=== PATIENT | male | born 1955 | race Hispanic/Latino ===

== ENCOUNTER 2018-07-12 14:28 | Emergency (ER) | payer OTHER, SELFPAY ==
[~2018-07-12 14:28] MED LIST: Iopamidol 370 76% 125 ML VIAL FS ONE; Sodium Chloride 0.9% 100 ML BAG ONE
[2018-07-12 15:03] LABS: #Basophils 0.1 thou/uL (0.0-0.2); #Eosinphils 0.4 thou/uL (0.0-0.7); #Monocytes 0.5 thou/uL (0.11-0.59); #Neutrophils 4.6 thou/uL (1.40-6.50); %Basophils 0.8 % (0.0-1.0); %Eosinophils 4.7 % (0.0-10.0); %Lymphocytes 26.6 % (21.0-51.0); %Monocytes 6.7 % (0.0-10.0); %Neutrophils 61.2 % (42.0-75.0); Hemoglobin 13.8 g/dL (14.0-18.0); Mean Corpuscular HGB CONC 32.9 g/dL (32.0-36.0); Mean Corpuscular Hemoglobin 27.2 pg (27.0-31.0); Mean Corpuscular Volume 82.8 fL (78.0-98.0); Mean Platelet Volume 6.4 fL (7.4-10.4); Platelet Count 280 thou/uL (130-400); RBC Distribution Width 12.7 % (11.5-14.5); Red Blood Cell (RBC) Count 5.07 mill/uL (4.70-6.10); White Blood Cell (WBC) Count 7.5 thou/uL (4.8-10.8)
[2018-07-12 15:11] LABS: Anion Gap 15 mmol/L (10-20); BUN (Urea Nitrogen) 16 mg/dL (8.4-25.7); Calc. Creatinine Clearance 0 mL/min (70-130); Calcium 9.2 mg/dL (7.8-10.44); Carbon Dioxide 18 mmol/L (23-31); Chloride 110 mmol/L (98-107); Estimated GFR-MDRD 83; Glucose 130 mg/dL (80-115); Potassium 3.9 mmol/L (3.5-5.1); Sodium 139 mmol/L (136-145)
--- NOTE | 2018-07-12 15:11 | CT ---
BRAIN CT WITHOUT IV CONTRAST: HISTORY: Headache with affecting vision. No injury or trauma. FINDINGS: No focal mass or midline shift. No intra- or extraaxial hemorrhage. Sinus mucosal changes including the ethmoid sinuses as well as some opacification and sclerosis in both mastoid regions. IMPRESSION: No significant acute intracranial process. No mass or bleed. Sinus mucosal disease. POS: [facility]
[2018-07-12 15:13] LABS: INR-International Normal Ratio 0.9; Prothrombin Time 12.6 SEC (12.0-14.7)
[2018-07-12 15:14] LABS: PTT 31.5 SEC (22.9-36.1)
[2018-07-12] MEDS ORDERED: Metoclopramide HCl 10 MG/2 ML VIAL ONE (15:53)
--- NOTE | 2018-07-12 16:50 | CT ---
CTA of the head with IV contrast and 3-D reformatted imaging. CTA of the neck with IV contrast and 3-D reformatted imaging. INDICATION: Headache COMPARISON: CT the brain without contrast dated July 12, 2018 FINDINGS: CTA OF THE HEAD WITH CONTRAST: CTA OF THE BRAIN: Right ICA: Patent. Right MCA: Patent. Right PAO: Patent. ACOM: Patent. Left ICA: Patent. Left MCA: Patent. Left PAO: Patent. PCOMs: Patent. The left MANGLE CATCHER has a origin. Vertebral arteries: Patent. Basilar Artery: Patent. child care sitter: Patent. Incidentals: None. CTA OF THE NECK WITH CONTRAST: Right CCA: Patent. Right ICA: Patent. Right Subclavian: Patent. Right Vertebral Artery: Patent. Left CCA: There is a mild atherosclerotic narrowing involving the mid to distal left common carotid artery Left ICA: Patent. Left Subclavian: Patent. Left Vertebral Artery: There is moderate narrowing involving the origin of the left vertebral artery Aerodigestive tract: Clear. Parotids/Submandibular/Thyroid glands: Normal. Lymph nodes: No pathologically enlarged lymph nodes. Lung Apices: Clear. Bones: No acute osseous abnormality. Incidentals: None. IMPRESSION: 1. 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 No additional hemodynamicall y significant stenosis, occlusion or aneurysmal formation demonstrated.
[2018-07-12] MEDS ORDERED: Aspirin 325 MG TAB ONE (17:20)
== END 2018-07-12 17:56 | disposition short-term general hospital (02) ==
LOC: MADERS 14:28
DX: R51 Headache (principal); R42 Dizziness and giddiness; I25.10 Atherosclerotic heart disease of native coronary artery without angina pectoris; I25.2 Old myocardial infarction; E11.9 Type 2 diabetes mellitus without complications; E78.5 Hyperlipidemia, unspecified; I10 Essential (primary) hypertension; Z79.899 Other long term (current) drug therapy; Z79.82 Long term (current) use of aspirin; Z79.84 Long term (current) use of oral hypoglycemic drugs
CPT/HCPCS: 36416; 70450; 70496; 80048; 84484; 85025; 85610; 85730; 93005; 96374; J2765; J3490; Q9967